=== PATIENT | female | born 2000 | race Two or more races ===

== ENCOUNTER 2024-07-08 15:26 | Emergency (ER) | payer OTHER ==
[~2024-07-08] VITALS: Ht 160 cm; Wt 63.5 kg
[2024-07-08] MEDS ORDERED: TOPROL XL50 M1 (15:42)
== END 2024-07-08 18:20 | disposition left against medical advice (07) ==
LOC: ER 15:29
DX: Z53.21 Procedure and treatment not carried out due to patient leaving prior to being seen by health care provider (principal)